=== PATIENT | male | born 1960 | race Caucasian/White ===

== ENCOUNTER 2019-05-21 04:33 | Inpatient (IN) | payer OTHER, SELFPAY ==
[2019-05-21] VITALS (9 sets, daily range): BP systolic 130–175; BP diastolic 68–94; PULSE 78–97; RESP 16–21; TEMP 36.4–37.1; O2SAT 95–100; BMI 28.5
--- NOTE | ~2019-05-21 | CT_ITS ---
EXAMINATION: CT brain wo con DATE: 05/21/2019 05:19 INDICATION: Left facial and arm numbness TECHNIQUE: Computed tomography (CT) of the head was performed without intravenous contrast. The mA wa s adjusted according to patient size. Iterative reconstruction technique was employed. Exam dose: 60 5.33 mGy-cm total exam DLP. COMPARISON: None FINDINGS: Bilateral vertebral, basilar and bilateral carotid siphon and supraclinoid internal carotid artery calcifications are noted. There is nonspecific diminished attenuation of the cerebral white m atter, likely due to chronic small vessel ischemic changes. Bilateral chronic basal ganglia lacunar infarcts, more prominent on the left, including caudate nucle us, as well as chronic left periventricular lacunar infarct. No recent cerebrovascular accident is no heavenly. CT is not sensitive for detection of hyperacute ischemic infarct however. No midline shift or mass effect. No subdural or epidural hematoma. There is moderate global volume lo ss. No orbital mass lesion is evident. The mastoid air cells and included paranasal sinuses are unremarkable. No fracture or bone destruction of the cranial vault. IMPRESSION: Bilateral chronic lacunar infarcts of the basal ganglia and left periventricular area Cerebral atherosclerosis and chronic small vessel ischemic changes Reviewed, dictated and finalized at [facility]. Reviewed, dictated and finalized at location A. RACTIVE DESIGNER IMPRESSION: Bilateral chronic lacunar infarcts of the basal ganglia and left p eriventricular area Cerebral atherosclerosis and chronic small vessel ischemic changes
--- NOTE | ~2019-05-21 | US_ITS ---
EXAMINATION: US carotid duplex BI DATE: 05/21/2019 11:33 INDICATION: Stroke presenting with symptoms of skin sensation at the left arm TECHNIQUE: Grayscale, color Doppler, and pulsed Doppler images of the cervical carotid arteries were obtained. The degree of vessel stenosis is placed in one of the following categories: normal, <50%, 5 0-69%, >=70% but less than near-occlusion, near-occlusion, or total occlusion. Note that percent sten osis relative to normal distal artery lumen diameter is indirectly measured from velocity measurement s as described by Lit, et al. Radiology 2003; 229:340-346. COMPARISON: None. FINDINGS: RIGHT: The right common carotid artery (CCA) peak systolic velocity (PSV) is 81 cm/s. The right internal car otid artery (ICA) PSV is 88 cm/s. The right ICA end-diastolic velocity (EDV) is 28 cm/s. The right IC A/CCA PSV ratio is 1.1. Grayscale and color Doppler images yield an estimate of <50% diameter reducti on from plaque in the ICA. The external carotid artery (ECA) PSV is 139 cm/s. There is antegrade flow in the right vertebral artery. LEFT: The left CCA PSV is 67 cm/s. The left ICA PSV is 95 cm/s. The left ICA EDV is 20 cm/s. The left ICA/C CA PSV ratio is 1.4. Grayscale and color Doppler images yield an estimate of <50% diameter reduction from plaque in the ICA. The ECA PSV is 163 cm/s. There is antegrade flow in the left vertebral artery . IMPRESSION: 1. <50% stenosis in the right internal carotid artery. 2. <50% stenosis in the left internal carotid artery. Reviewed, dictated and finalized at location A. R REEL OPERATOR
--- NOTE | ~2019-05-21 | MR_ITS ---
EXAMINATION: MR brain/brain stem wo/w con DATE: 05/21/2019 11:14 INDICATION: Cerebrovascular accident. TECHNIQUE: Magnetic resonance imaging (MRI) of the brain and brainstem was performed without and with 18 mL MultiHance intravenous contrast. Sequences included sagittal and axial T1-weighted FSE, axial diffusion-weighted FS EPI, axial T2*-weighted GRE, axial T2-weighted FLAIR Propeller, and axial T2-we ighted Propeller. Postcontrast sequences included axial and coronal T1-weighted FSE. Apparent diffusi on coefficient (ADC) maps were created. COMPARISON: Head CT 05/21/2019 FINDINGS: There is an acute infarct in the right thalamus. There are old infarcts in the left basal g anglia and left thalamus. There is a small area of cystic encephalomalacia in the right subinsular wh ite matter. There are scattered areas of nonspecific increased T2-weighted signal intensity in the ce rebral white matter, which is within normal limits for the patient's age. There is no intracranial he morrhage or abnormal mass lesion. There is ex vacuo dilatation of frontal horn of left lateral ventri anahi. The orbits are normal. The paranasal sinuses are clear. The mastoid air cells are normal. IMPRESSION: 1. Acute infarct in the right thalamus. 2. Old infarcts in the left basal ganglia, left thalamus, and right subinsular white matter. Reviewed, dictated and finalized at location A. RVISOR PIPE MANUFACTURE
--- NOTE | ~2019-05-21 | XR_ITS ---
EXAMINATION: XR chest 1V portable DATE: 05/21/2019 06:02 INDICATION: Left arm numbness TECHNIQUE: frontal view of the chest was obtained. COMPARISON: Chest radiograph dated 08/22/2016 FINDINGS: The lungs remain clear with no focal airspace opacities, pulmonary edema, pleural effusion or pneumot horax. The cardiomediastinal silhouette is normal. Visualized bones and soft tissues are unremarkable . IMPRESSION: 1. No acute cardiopulmonary disease. Reviewed, dictated and finalized at location A. ING CLINICAL DIRECTOR
[2019-05-21 04:49] LABS: Glucose Point of Care 278 (65-105)
--- NOTE | 2019-05-21 04:58 | ECG_ITS ---
Measurements Intervals [place] Rate: 93 P: 47 MT: 134 QRS: -16 QRSD: 136 T: 7 QT: 362 QTc: 452 Interpretive Statements SINUS RHYTHM RIGHT BUNDLE BRANCH BLOCK ABNORMAL ECG Electronically Signed On 05-21-2019 7:13:13 WATER PLANT PUMP OPERATOR by Torsten Barakat D.O.
[2019-05-21 05:07] LABS: Basophils Absolute Auto 0.1 K/mm3 (0.0-0.1); Basophils Percent Auto 0.7 % (0.2-1.2); Eosinophils Absolute Auto 0.2 K/mm3 (0-0.3); Eosinophils Percent Auto 2.3 % (0-4.4); Hematocrit 48.4 % (42.0-52.0); Hemoglobin 16.6 g/dL (14.0-18.0); Immature Granulocyte Absolute 0.05 K/mm3 (0.00-0.031); Immature Granulocyte Percent A 0.5 % (0-0.5); Lymphocytes Absolute Auto 3.05 K/mm3 (0.9-3.2); Lymphocytes Percent Auto 29.9 % (18.3-44.2); Mean Corpuscular HGB Conc 34.3 g/dl (32-36); Mean Corpuscular Hemoglobin 28.3 pg (26-34); Mean Corpuscular Volume 82.5 fl (80-100); Mean Platelet Volume 11.7 fl (7.4-10.4); Monocytes Percent Auto 9.5 % (2.6-8.5); Neutrophils Absolute Auto 5.8 K/mm3 (1.3-6.7); Neutrophils Percent Auto 57.1 % (45.5-73.1); Platelet Count Result 216 k/mm3 (150-375); Red Blood Count 5.87 M/mm3 (4.6-6.20); Red Cell Distribution Width 12.8 % (11.5-14.5); White Blood Count 10.2 K/mm3 (4.5-10.0)
--- NOTE | 2019-05-21 05:13 | ED.NEUROSD ---
HPI - Neuro Symptoms/Deficit General Chief Complaint: Neuro Symptoms/Deficit <Annel Kendall MD - Last Filed: 05/22/19 07:15> Stated Complaint: L arm numb/ L side of face numb <Annel Kendall MD - Last Filed: 05/22/19 07:15> Time Seen by Provider: 05/21/19 04:46 <Annel Kendall MD - Last Filed: 05/22/19 07:15> Source: patient <Annel Kendall MD - Last Filed: 05/22/19 07:15> Mode of arrival: ambulatory <Annel Kendall MD - Last Filed: 05/22/19 07:15> Limitations: no limitations <Annel Kendall MD - Last Filed: 05/22/19 07:15> History of Present Illness HPI Narrative: 58 yo male with h/o DM, HTN who presents for evaluation of left facial and left arm numbness starting at 11 pm . Patient states he noticed at 11 pm numbness to left face and left arm. He states he went to sleep and he noticed that his numbness was still present. He reports intermittent dizziness and posterior headache starting at 1 am. He is unsure of focal weakness. He denies chest pain or sob. he was told that he had mild stroke last year but he denies having any residual deficits. <Annel Kendall MD - Last Filed: 05/22/19 07:15> Onset (ago): hour(s) (6 hours) <Annel Kendall MD - Last Filed: 05/22/19 07:15> Location: left face and left arm <Annel Kendall MD - Last Filed: 05/22/19 07:15> Related Data Home Medications: Home Medications Medication Instructions Recorded Confirmed aspirin 81 mg PO HS 05/21/19 05/21/19 atorvastatin 40 mg PO HS 05/21/19 05/21/19 carvedilol 25 mg PO DAILY 05/21/19 05/21/19 lisinopril 40 mg PO DAILY 05/21/19 05/21/19 omeprazole magnesium [Prilosec OTC] 20 mg PO BID 05/21/19 05/21/19 <Annel Kendall MD - Last Filed: 05/22/19 07:15> Allergies/Adverse Reactions: Allergies Allergy/AdvReac Type Severity Reaction Status Date / Time codeine Allergy Mild Vomiting Verified 05/21/19 04:47 Penicillins Allergy Mild Hives Verified 05/21/19 04:47 Sulfa (Sulfonamide Allergy Mild Nausea Verified 05/21/19 04:47 Antibiotics) <Annel Kendall MD - Last Filed: 05/22/19 07:15> Review of Systems Review of Systems: All systems reviewed & are unremarkable except as noted in HPI and below <Annel Kendall MD - Last Filed: 05/22/19 07:15> Constitutional: Constitutional: Denies chills and Denies fever(s) <Annel Kendall MD - Last Filed: 05/22/19 07:15> Eyes: Eyes: Denies change in vision and Denies photophobia <Annel Kendall MD - Last Filed: 05/22/19 07:15> ENT: Reports dizziness (intermittent) <Annel Kendall MD - Last Filed: 05/22/19 07:15> Cardiovascular: Cardiovascular: Denies chest pain and Denies radiating jaw, neck or arm pain <Annel Kendall MD - Last Filed: 05/22/19 07:15> Respiratory: Respiratory: Denies cough and Denies dyspnea <Annel Kendall MD - Last Filed: 05/22/19 07:15> Gastrointestinal: Gastrointestinal: Denies abdominal pain, Denies nausea and Denies vomiting <Annel Kendall MD - Last Filed: 05/22/19 07:15> Neurologic: Reports headache(s), Reports numbness and Reports weakness <Annel Kendall MD - Last Filed: 05/22/19 07:15> [facility] Past Medical History Medical History: Medical History (Updated 05/22/19 @ 02:09 by Ruby Kasper PA-C) Benign prostatic hyperplasia COPD (chronic obstructive pulmonary disease) CVA (cerebral vascular accident) Brain CT 05/21/2019 showed an old infarct in left basal ganglia, left thalamus, and right subinsular white matter. GERD (gastroesophageal reflux disease) History of colon polyps Hyperlipidemia Hypertension Kidney stones Mild coronary artery disease Noted on cardiac catheterization January 2015. 30% stenosis noted in the proximal right and proximal circumflex as well and mild plaquing elsewhere. Obstructive sleep apnea Tobacco dependence Type 2 diabetes mellitus Hemoglobin A1c was 10.4 % in January 2015. <Annel Harris
[2019-05-21 05:49] LABS: Blood Urea Nitrogen 15 mg/dL (9-20); Carbon Dioxide 25 mmol/L (22-30); Chloride 94 mmol/L (98-107); Estimated Glomerular Filt Rate > 60; Glucose 295 mg/dL (75-110); Potassium 4.4 mmol/L (3.4-5.0); Sodium 135 mmol/L (137-145)
[2019-05-21 06:02] LABS: Troponin I < 0.012 ng/mL (0.000-0.034)
[2019-05-21 06:06] LABS: INR 0.9; Prothrombin Time 11.9 Seconds (11.1-14.7)
[2019-05-21 06:07] LABS: Partial Thromboplastin Time 24.2 SECONDS (22.3-36.8)
[2019-05-21] MEDS: ASPIRIN 81 MG CHEWABLE TABLET 324 MG PO (06:11)
--- NOTE | 2019-05-21 09:04 | PC.NURSE ---
This patient, Bull Wild, was admitted to 3 Med Surg Room 332-01. Patient/family oriented to hospital policies and general routines including ID bracelet, bed and alarms, visiting hours, pain management, procedures, bathroom and other care routines, personal items, smoking policy, room service/diet, and visiting hours. Valuables list has been completed. Information on how to activate the Rapid Response Team has been discussed. Patient/Family are encouraged to report perceived risks to care and to ask questions if they do not understand what they are told or what they should do.
[2019-05-21 09:23] LABS: Troponin I < 0.012 ng/mL (0.000-0.034)
--- NOTE | 2019-05-21 10:45 | PC.NURSE ---
patient to mri per w/c at 1040
[2019-05-21] MEDS: ALPRAZOLAM 0.5 MG TABLET PO (10:56)
--- NOTE | 2019-05-21 11:37 | PC.NURSE ---
patient back to floor after tests
[2019-05-21 12:14] LABS: Troponin I < 0.012 ng/mL (0.000-0.034)
--- NOTE | 2019-05-21 12:44 | CONS_ITS ---
DATE OF CONSULTATION: HISTORY: This 58 years old has been admitted to [facility] through the emergency room for the complaint of left facial and left upper extremity numbness, along with the history of intermittent dizziness and posterior headache in addition to the history of diabetes mellitus and hypertension. ALLERGIES: AT THE TIME OF AN ADMISSION TO THE ER, HE WAS REPORTEDLY ALLERGIC TO CODEINE, PENICILLIN, AND SULFA. PAST HISTORY: Has history of COPD as well and in the past has undergone lithotripsy. PHYSICAL EXAMINATION: GENERAL: Revealed him to be awake, alert, cooperative, in no obvious acute distress. HEENT: Head normocephalic with no cranial bruit. Ear, nose, throat examination normal. NECK: Supple with no cervical bruit. No thyromegaly. No lymphadenopathy. HEART: Regular with no murmur. LUNGS: Clear to auscultation. ABDOMEN: Soft. NEUROLOGIC: Awake, alert, oriented x3. Speech not dysphasic, not dysarthric, not dysphonic. Pupils round and regular. Enriquez of vision full. Extraocular movements full. Face symmetrical. Tongue midline. Motor examination revealed symmetrical strength and tone. Reflexes symmetrical. Plantars downgoing. As the patient was out of the tPA window in the emergency room, he was admitted for further evaluation. Basic metabolic panel normal so as the CBC. The initial CT scan was done and at this stage, the patient has been sent down for the MRI and further recommendations will be made accordingly. DAWOOD KIM M.D. HAND PATCHER HAND PATCHER D I MT: Suresh
--- NOTE | 2019-05-21 22:30 | PM.IMHP ---
H&P: HPI History of Present Illness Chief complaint: Left face and arm numbness. Narrative: Bull Wild is a 58 year old male smoker with diabetes, mild coronary artery disease on cardiac catheterization in 2014, COPD, hypertension, sleep apnea, and several other comorbidities who presented to the emergency department earlier this morning for evaluation of left face and arm numbness. At approximately 23:00 last night, he noticed a sudden onset of numbness on the left side of his face in the left upper extremity. He then lay down to go to bed, at approximately 01:00 he developed a posterior headache and mild dizziness. He has not noticed any significant weakness. No diplopia, dysarthria, facial asymmetry, or dysphagia. He has known history of atrial fibrillation and denies palpitations. He presented to the emergency department approximately 5 hours after onset of symptoms, and at that time report that he had a ?mild stroke? last year. In fact, brain CT today showed old infarcts in the left basal ganglia, left thalamus, and right subinsular white matter. No acute findings were noted on that today, but a subsequent MRI showed an acute infarct in the right thalamus. Review of Systems Review of Systems: Narrative: Twelve systems were reviewed with pertinent positives and negatives as per HPI. No fever, chills, or sweats. Denies recent cold or flu symptoms. No chest pain, pleuritic pain, or shortness of breath. No nausea, vomiting, or diarrhea. Except as documented, all other systems were reviewed and are negative. [facility] Past Medical History Medical History (Updated 05/22/19 @ 02:09 by Ruby Kasper PA-C) Benign prostatic hyperplasia COPD (chronic obstructive pulmonary disease) CVA (cerebral vascular accident) Brain CT 05/21/2019 showed an old infarct in left basal ganglia, left thalamus, and right subinsular white matter. GERD (gastroesophageal reflux disease) History of colon polyps Hyperlipidemia Hypertension Kidney stones Mild coronary artery disease Noted on cardiac catheterization January 2015. 30% stenosis noted in the proximal right and proximal circumflex as well and mild plaquing elsewhere. Obstructive sleep apnea Tobacco dependence Type 2 diabetes mellitus Hemoglobin A1c was 10.4 % in January 2015. Surgical History Surgical History (Updated 05/22/19 @ 02:06 by Ruby Kasper PA-C) Status post cystoscopy with ureteral stent placement Status post laser lithotripsy of ureteral calculus Family History Family History Mother Acute myocardial infarction Sibling Acute myocardial infarction Social History Social History (Updated 05/22/19 @ 02:07 by Ruby Kasper PA-C) Social History: The patient lives with his in [place]. He designates his as his surrogate decision maker. He has smoked up to 2 packs of cigarettes per day for > 35 years, now smokes between 0.5 and 1 pack per day. He uses alcohol socially in moderation. No drug use. Smoking packs per day: 1 Smoking cigarettes per day: 20.0 Years smoked: 40 Smoking pack-years: 40.00 Smoking status: Current every day smoker Tobacco type: cigarettes Alcohol intake: current Drinks per week: 1 Substance use: never Spiritual care concerns: No Agree to blood products: Yes Meds Home Medications and Allergies Home Medications Medication Instructions Recorded Confirmed Type aspirin 81 mg PO HS 05/21/19 05/21/19 History atorvastatin 40 mg PO HS 05/21/19 05/21/19 History carvedilol 25 mg PO DAILY 05/21/19 05/21/19 History lisinopril 40 mg PO DAILY 05/21/19 05/21/19 History omeprazole magnesium [Prilosec OTC] 20 mg PO BID 05/21/19 05/21/19 History Allergies Allergy/AdvReac Type Severity Reaction Status Date / Time codeine Allergy Mild Vomiting Verified 05/21/19 04:47 Penicillins Allergy Mild Hives Verified 05/21/19 04:47 Sulfa (Sulfonamide All
[2019-05-21] MEDS: ASPIRIN 81 MG CHEWABLE TABLET PO (22:41)
[2019-05-21] MEDS: ATORVASTATIN 40 MG TABLET PO (22:42)
[2019-05-21] MEDS: PANTOPRAZOLE 40 MG TABLET PO (22:43)
[2019-05-22] VITALS (8 sets, daily range): BP systolic 103–176; BP diastolic 43–72; PULSE 68–101; RESP 16–20; TEMP 36.3–37.1; O2SAT 93–98
[2019-05-22 06:36] LABS: Basophils Absolute Auto 0.1 K/mm3 (0.0-0.1); Basophils Percent Auto 0.5 % (0.2-1.2); Eosinophils Absolute Auto 0.2 K/mm3 (0-0.3); Eosinophils Percent Auto 2.4 % (0-4.4); Hematocrit 48.1 % (42.0-52.0); Hemoglobin 16.2 g/dL (14.0-18.0); Immature Granulocyte Absolute 0.06 K/mm3 (0.00-0.031); Immature Granulocyte Percent A 0.7 % (0-0.5); Lymphocytes Absolute Auto 2.84 K/mm3 (0.9-3.2); Lymphocytes Percent Auto 31.2 % (18.3-44.2); Mean Corpuscular HGB Conc 33.7 g/dl (32-36); Mean Corpuscular Hemoglobin 27.9 pg (26-34); Mean Corpuscular Volume 82.9 fl (80-100); Mean Platelet Volume 11.6 fl (7.4-10.4); Monocytes Absolute Auto 0.8 K/mm3 (0.1-0.6); Monocytes Percent Auto 9.1 % (2.6-8.5); Neutrophils Absolute Auto 5.1 K/mm3 (1.3-6.7); Neutrophils Percent Auto 56.1 % (45.5-73.1); Platelet Count Result 194 k/mm3 (150-375); Red Cell Distribution Width 12.8 % (11.5-14.5); White Blood Count 9.1 K/mm3 (4.5-10.0)
[2019-05-22 06:44] LABS: Hemoglobin A1C 9.5 % (<5.7)
[2019-05-22 06:48] LABS: Blood Urea Nitrogen 17 mg/dL (9-20); Calcium 9.7 mg/dL (8.4-10.2); Carbon Dioxide 24 mmol/L (22-30); Chloride 94 mmol/L (98-107); Estimated CRCL calculation 109 ml/min; Estimated Glomerular Filt Rate > 60; Glucose 264 mg/dL (75-110); Potassium 4.6 mmol/L (3.4-5.0); Sodium 134 mmol/L (137-145)
[2019-05-22 06:49] LABS: Alanine Aminotransferase 21 U/L (4-50); Albumin Level 4.4 g/dL (3.5-5.1); Alkaline Phosphatase 96 U/L (38-126); Aspartate Amino Transferase 19 U/L (17-59); Bilirubin,Total 0.7 mg/dL (0.2-1.3); Cholesterol 258 mg/dL (0-200); HDL Direct 36 mg/dL; Triglycerides 231 mg/dL (<150)
[2019-05-22 07:01] LABS: LDL Cholesterol Direct 190 mg/dL
[2019-05-22] MEDS: PANTOPRAZOLE 40 MG TABLET PO ×2 (09:48→20:31)
[2019-05-22] MEDS: CLOPIDOGREL BISULFATE 75 MG TABLET PO (09:48)
[2019-05-22] MEDS: lisinopriL 20 MG TABLET 40 MG PO (09:49)
[2019-05-22 11:30] LABS: Glucose Point of Care 263 (65-105)
--- NOTE | 2019-05-22 11:39 | WPDNEUROPN ---
Progress Note: A&P Assessment and Plan (1) Hyperlipidemia: Code(s): E78.5 - Hyperlipidemia, unspecified Status: Acute (2) Hypertension: Code(s): I10 - Essential (primary) hypertension Status: Acute (3) Type 2 diabetes mellitus: Code(s): E11.9 - Type 2 diabetes mellitus without complications Status: Acute (4) Acute CVA (cerebrovascular accident): Code(s): I63.9 - Cerebral infarction, unspecified Status: Acute (5) Acute left hemiparesis: Code(s): G81.94 - Hemiplegia, unspecified affecting left nondominant side Status: Acute Additional Plan lower the cholestrol Review of Systems Review of Systems: All systems reviewed & are unremarkable except as noted in HPI and below Exam Const: General: no acute distress Eyes: General: appearance normal, both eyes and all related structures Alignment and Position: alignment normal Eyelids: eyelids normal Conjunctivae: conjunctivae normal Pupils: Equal, round and reactive pupils present EOM: EOMs intact bilaterally Direct Ophthalmoscopy: normal light reflex Neck: Neck: full ROM and no lymphadenopathy Resp: Auscultation: clear to auscultation bilaterally Cardio: Rate: regular rate Rhythm: regular rhythm Skin: General skin exam: no rashes or lesions noted Neuro: Cranial nerves: Yes CN's II-XII intact bilaterally Cognition (Neuro): normal cognition Deep tendon reflexes (DTR's): Right triceps reflex intensity grade: 1+, Left triceps reflex intensity grade: 1+, Rt Biceps (C5, C6): 1+, Left biceps reflex intensity grade: 1+, Right brachioradialis reflex intensity grade: 1+, Left brachioradialis reflex intensity grade: 1+, Right patellar reflex intensity grade: 1+, Left patellar reflex intensity grade: 1+, Right ankle reflex intensity grade: 1+ and Left ankle reflex intensity grade: 1+ Objective Data Vital Signs Vital Signs: Vital Signs - 24 hr 05/21/19 14:00 05/21/19 16:00 05/21/19 22:00 Temperature 36.6 C 37.1 C Pulse Rate 82 80 83 Respiratory Rate 20 20 Blood Pressure 151/82 H 136/68 Pulse Oximetry 98 95 05/22/19 00:00 05/22/19 04:00 05/22/19 06:00 Temperature 36.3 C L Pulse Rate 78 78 78 Respiratory Rate 20 Blood Pressure 176/72 H Pulse Oximetry 98 05/22/19 08:00 Temperature Pulse Rate 80 Respiratory Rate Blood Pressure Pulse Oximetry Intake/Output Intake/Output: Intake & Output 05/19/19 05/20/19 05/21/19 05/22/19 23:59 23:59 23:59 23:59 Intake Total 1320 360 Balance 1320 360 Meds/Results Medications: Active Medications Generic Name Dose Route Start Last Admin Trade Name Freq PRN Reason Stop Dose Admin Aspirin 81 mg 05/21/19 21:00 05/21/19 22:41 Aspirin Chewable PO 81 mg HS FATOUMATA Administration Atorvastatin Calcium 40 mg 05/21/19 21:00 05/21/19 22:42 Lipitor PO 40 mg HS FATOUMATA Administration Carvedilol 25 mg 05/22/19 09:00 Coreg PO DAILY FATOUMATA Clopidogrel Bisulfate 75 mg 05/22/19 09:00 05/22/19 09:48 Plavix PO 75 mg QAM FATOUMATA Administration Dextrose 12.5 gm 05/21/19 19:31 Dextrose 50% Syringe IV PUSH PRN PRN Hypoglycemia Protocol Glucagon 1 mg 05/21/19 19:31 Glucagon For Inj IM PRN PRN Hypoglycemia Protocol Glucose 15 gm 05/21/19 19:31 Glutose 15 PO PRN PRN Hypoglycemia Protocol Dextrose 1,000 mls @ 100 mls/hr 05/21/19 19:31 Dextrose 5% 1,000 Ml IVPB PRN PRN Hypoglycemia Protocol Insulin Aspart 3 - 6 units 05/22/19 08:00 05/22/19 09:51 Novolog SUB-Q Not Given TIDWM FATOUMATA Protocol Lisinopril 40 mg 05/22/19 09:00 05/22/19 09:49 Prinivil PO 40 mg DAILY FATOUMATA Administration Pantoprazole Sodium 40 mg 05/21/19 21:00 05/22/19 09:48 Protonix PO 40 mg Q12HR FATOUMATA Administration Radiology Results: ITS Impressions Head CT 05/21/19 06:00 IMPRESSION: Bilateral chronic lacunar infarcts of
[2019-05-22] MEDS: INSULIN ASPART (*BKC) 100 UNITS/ML SUB-Q ×2 (11:45→17:31)
[2019-05-22] MEDS: carvediloL 25 MG TABLET PO (11:46)
--- NOTE | 2019-05-22 13:27 | PM.IMPN ---
Progress Note: A&P Assessment and Plan (1) Acute CVA (cerebrovascular accident): Code(s): I63.9 - Cerebral infarction, unspecified Status: Acute Assessment and Plan: Acute infarcts noted in the right thalamus on brain MRI. Several old infarcts were noted as well. Carotid Doppler ultrasounds showed < 50% stenosis in the bilateral internal carotid arteries. Echocardiogram is pending. Dr. Matthews notified of left lower leg deficit has still okayed patient for discharge from his standpoint; stated his management likely wouldn't change and has already having imaging done. Continue aspirin and Plavix. Continue atorvastatin. notes that he has been non-compliant with this medication. Lipid panel grossly abnormal with elevated triglycerides, cholesterol and LDL PT/OT evaluated patient is having difficulty ambulating due to decreased sensation in LLE Will observe another night. To work with PT/OT. Considering placment (2) Type 2 diabetes mellitus: Code(s): E11.9 - Type 2 diabetes mellitus without complications Status: Acute Assessment and Plan: Patient takes 40 units lantus every night. A1c 9.5 Will continue sliding scale insulin, Accu-Cheks, and hypoglycemic protocol. It is important that he get his diabetes under control. Resume home lantus (3) Hypertension: Code(s): I10 - Essential (primary) hypertension Status: Acute Assessment and Plan: Blood pressure was as high as 170s sys this morning. 120s sys this afternoon per nursing Continue antihypertensives and monitor daily. (4) Hyperlipidemia: Code(s): E78.5 - Hyperlipidemia, unspecified Status: Acute Assessment and Plan: Lipid panel shows he is not at goal and states he stopped taking medication but did not give a reason. Continue statin. (5) Tobacco dependence: Code(s): F17.200 - Nicotine dependence, unspecified, uncomplicated Status: Acute Assessment and Plan: Smoking cessation is imperative and was discussed again. Nursing and RT to also reinforce cessation Subjective Date/time seen: 05/22/19 13:27 Interval history: Patient is a 58 yo M with history of diabetes, mild coronary artery disease on cardiac catheterization in 2014, COPD, hypertension, sleep apnea, and several other comorbidities who is here fro acute CVA found on MRI imaging after having numbness of left face and arm. Patient is doing okay today and is wishing to return home. He is now reporting left leg numbness with mild weakness that started 10 minutes prior to my visit; this was reported to Dr. Matthews by myself after. Otherwise his numbness in face and arm are stable and he has no other complaints. Denies f/c/ns, headaches, dizziness, lightheadedness, changes in v/h, cp/palpitations, sob/cough, n/v/d/c, abd pain, dysphagia, melena, brbpr, dysuria, hematuria, cloudy urine, calf pain/swelling, s/sx of stroke Review of Systems Review of Systems: All systems reviewed & are unremarkable except as noted in HPI and below Exam Narrative: Exam Narrative: Patient sitting up on side of bed at time of visit. is in room visiting Const: General: comfortable, no acute distress, well developed and alert Orientation/consciousness: patient oriented x3 HENMT: Head: normocephalic and atraumatic Ears: external ears normal General nose exam: Normal nares present Face and sinus: face symmetric Mouth: Yes tongue normal and Yes moist mucous membranes Teeth and gingiva: edentulous Throat: posterior oropharynx normal and uvula midline Eyes: General: appearance normal, both eyes and all related structures Sclera: sclerae normal Pupils: Equal, round and reactive pupils present EOM: EOMs intact bilaterally Neck: Neck: trachea mid
--- NOTE | 2019-05-22 14:21 | ECG_ITS ---
Measurements Intervals [place] Rate: 69 P: 22 NE: 150 QRS: -7 QRSD: 101 T: 74 QT: 391 QTc: 421 Interpretive Statements SINUS RHYTHM INCOMPLETE RIGHT BUNDLE BRANCH BLOCK BORDERLINE ST-T WAVE ABNORMALITY- INF/LAT LEADS BORDERLINE ECG Electronically Signed On 05-22-2019 15:43:03 CLIENT FINANCE ANALYST by Torsten Barakat D.O.
[2019-05-22] MEDS: ENOXAPARIN 40 MG/0.4 ML SYRINGE SUB-Q (16:40)
[2019-05-22 18:24] LABS: Glucose Point of Care 332 (65-105)
--- NOTE | 2019-05-22 19:26 | ECHO_ITS ---
Patient Info Name: Bull Wild Age: 58 years : 1960 Gender: Male Ht: 72 in Wt: 210 lbs BSA: 2.22 m2 HR: 78 bpm BP: 176 / 72 mmHg Heart Rhythm: Sinus Rhythm Technical Quality: Good Exam Date: 05/22/2019 9:08 AM Exam Location: [facility] Exam Room: 332 Patient Status: Inpatient Admit Date: 05/21/2019 Staff Ordering Physician: Ruby Kasper PA-C Ceramic Designer: Elizabeth Ramachandran RDCS Attending Provider: Rick Bravo PA-C Exam Type: CA echo doppler color flow Study Info Indications - cva htn Complete two-dimensional, color flow and Doppler transthoracic echocardiogram is performed. Summary 1. Left ventricular systolic function is normal, estimated at 60-65%. 2. There is no increased left ventricular wall thickness. 3. The left ventricular diastolic function is grade I diastolic dysfunction. 4. There is mild to moderate aortic valve stenosis with a peak velocity of 264 cm/s, mean gradient of 13 mmHg, and aortic valve area of 1.5 cm2. 5. There is moderate aortic valve calcification. 6. There is trace mitral valve regurgitation. 7. The mitral valve annulus is moderately calcified. Recommendations * Consider transesophageal echocardiogram if clinically indicated. Left Ventricle Left ventricular chamber dimension is normal. Left ventricular systolic function is normal, estimated at 60-65%. There is no increased left ventricular wall thickness. The left ventricular diastolic function is grade I diastolic dysfunction. Right Ventricle Right ventricular chamber dimension is normal. Right ventricular systolic function is normal. Prominent moderator band in RV. Left Atria Left atrial chamber dimension is normal. Right Atria Right atrial chamber dimension is normal. Aortic Valve The aortic valve is not well visualized. There is mild to moderate aortic valve stenosis with a peak velocity of 264 cm/s, mean gradient of 13 mmHg, and aortic valve area of 1.5 cm2. There is no aortic valve regurgitation. There is moderate aortic valve calcification. Pulmonic Valve The pulmonic valve is not well visualized. Mitral Valve The mitral valve has normal leaflets. There is trace mitral valve regurgitation. The mitral valve annulus is moderately calcified. Tricuspid Valve The tricuspid valve leaflets are normal. There is mild tricuspid valve regurgitation. Pericardium/Pleural The pericardium appears normal. There is no pericardial effusion. Inferior Vena Cava Normal inferior vena cava with >50% collapse upon inspiration consistent with normal right atrial pressure, 5 mmHg. Aorta The aortic root size at the sinus of Valsalva is normal. Left Ventricular Outflow Tract Name Value Normal LVOT 2D LVOT Diameter 2.0 cm LVOT Doppler LVOT Peak Gradient 5 mmHg LVOT Mean Gradient 3 mmHg LVOT VTI 20 cm LVOT VTI/AV VTI Ratio 0.5 LVOT Stroke Volume 61 ml LVOT CO 13.2 l/min LVOT CI
[2019-05-22] MEDS: ATORVASTATIN 40 MG TABLET PO (20:31)
[2019-05-22] MEDS: ASPIRIN 81 MG CHEWABLE TABLET PO (20:32)
[2019-05-22] MEDS: INSULIN GLARGINE (*BKC) 100 UNITS/ML 40 UNITS SUB-Q (20:36)
[2019-05-22 21:09] LABS: Glucose Point of Care 280 (65-105)
[2019-05-23 06:00] VITALS: BP 139/75; PULSE 78; RESP 20; TEMP 36.8; O2SAT 97
[2019-05-23 06:18] LABS: Blood Urea Nitrogen 24 mg/dL (9-20); Calcium 9.5 mg/dL (8.4-10.2); Carbon Dioxide 25 mmol/L (22-30); Chloride 94 mmol/L (98-107); Estimated CRCL calculation 96 ml/min; Estimated Glomerular Filt Rate > 60; Glucose 210 mg/dL (75-110); Magnesium 1.7 mg/dL (1.6-2.3); Potassium 4.4 mmol/L (3.4-5.0); Sodium 132 mmol/L (137-145)
[2019-05-23 07:51] LABS: Glucose Point of Care 190 (65-105)
[2019-05-23 09:42] VITALS: PULSE 78
[2019-05-23] MEDS: PANTOPRAZOLE 40 MG TABLET PO (09:42)
[2019-05-23] MEDS: CLOPIDOGREL BISULFATE 75 MG TABLET PO (09:42)
[2019-05-23] MEDS: carvediloL 25 MG TABLET PO (09:42)
[2019-05-23] MEDS: lisinopriL 20 MG TABLET 40 MG PO (09:42)
[2019-05-23] MEDS: ENOXAPARIN 40 MG/0.4 ML SYRINGE SUB-Q (09:43)
[2019-05-23 11:16] LABS: Glucose Point of Care 231 (65-105)
[2019-05-23] MEDS: INSULIN ASPART (*BKC) 100 UNITS/ML SUB-Q (12:18)
--- NOTE | 2019-05-23 13:27 | PM.DS ---
DS: Diagnosis Admitting Diagnosis Admitting Diagnosis: Cerebral infarction, unspecified Discharge Diagnosis (1) Acute CVA (cerebrovascular accident): Code(s): I63.9 - Cerebral infarction, unspecified Status: Acute Assessment and Plan: Acute infarcts noted in the right thalamus on brain MRI. Several old infarcts were noted as well. Carotid Doppler ultrasounds showed < 50% stenosis in the bilateral internal carotid arteries. Echocardiogram notable findings are mod aortic calcification, mild-mod aortic stenosis, and grade I diastolic dysfunction; discussed with patient and . Dr. Matthews notified of left lower leg deficit has still okayed patient for discharge from his standpoint; stated his management likely wouldn't change and has already having imaging done. Dr. Edwards saw patient today, and confirmed. Patient improving with PT/OT. Patient to be discharged home with home health PT/OT with walker. Continue aspirin and Plavix at discharge per Neurology recommendations Continue atorvastatin. notes that he has been non-compliant with this medication. Lipid panel grossly abnormal with elevated triglycerides, cholesterol and LDL PT/OT evaluated patient; attempted to discharge to [facility]/rehab, but was not able to be placed. Will discharge home with PT/OT (2) Type 2 diabetes mellitus: Code(s): E11.9 - Type 2 diabetes mellitus without complications Status: Acute Assessment and Plan: Patient takes 40 units lantus every night. A1c 9.5 sliding scale insulin, Accu-Cheks, and hypoglycemic protocol during stay It is important that he get his diabetes under control. Discussed this with and patient; they will be following up with PCP Continue home lantus (3) Hypertension: Code(s): I10 - Essential (primary) hypertension Status: Acute Assessment and Plan: BP improved to 130s sys this morning Continue antihypertensives Follow up with Cardiology (4) Hyperlipidemia: Code(s): E78.5 - Hyperlipidemia, unspecified Status: Acute Assessment and Plan: Lipid panel shows he is not at goal and states he stopped taking medication but did not give a reason. Continue statin. (5) Tobacco dependence: Code(s): F17.200 - Nicotine dependence, unspecified, uncomplicated Status: Acute Assessment and Plan: Smoking cessation is imperative and was discussed again prior to discharge (6) Aortic stenosis: Code(s): I35.0 - Nonrheumatic aortic (valve) stenosis Status: Acute Assessment and Plan: Found on Echo this visit Instructed patient to follow up with his office director after discharge regarding this DS: Summary Hospital Course Reason for hospitalization: Acute CVA Hospital Course: Patient is a 58 yo M, current smoker, with history of diabetes, mild coronary artery disease on cardiac catheterization in 2014, COPD, hypertension, sleep apnea, and several other comorbidities who presented to the emergency department earlier on 05/21 for evaluation of left face and arm numbness. Patient noticed sudden onset of numbness of left side of face and LUE at around 23:00 on 05/20; he then noticed posterior headache and dizziness at roughly 01:00 am 05/21 when he laid down to go to bed. CT of head in ER showed old infarcts in left basal ganglia, left thalamus, and right subinsular white matter. Of note, he presented roughly 5 hours after onset of symptoms. Please see H&P for further details. Presenting VS: BP 167/94, HR 97, RR 21, temp 97.6, sat 97% RA Presenting Pertinent labs: Na 135, Cl 94, troponins negative x3. Triglycerides 231, Cholesterol 258, LDL 190, HDL 36. BMP coags, CBC otherwise unremarkable Micro: none Imagin
--- NOTE | 2019-05-23 13:44 | WPDNEUROPN ---
Progress Note: A&P Assessment and Plan (1) Aortic stenosis: Code(s): I35.0 - Nonrheumatic aortic (valve) stenosis Status: Acute (2) Hyperlipidemia: Code(s): E78.5 - Hyperlipidemia, unspecified Status: Acute (3) Hypertension: Code(s): I10 - Essential (primary) hypertension Status: Acute (4) Type 2 diabetes mellitus: Code(s): E11.9 - Type 2 diabetes mellitus without complications Status: Acute (5) Acute CVA (cerebrovascular accident): Code(s): I63.9 - Cerebral infarction, unspecified Status: Acute (6) CVA (cerebral vascular accident): Code(s): I63.9 - Cerebral infarction, unspecified Status: Acute (7) Acute left hemiparesis: Code(s): G81.94 - Hemiplegia, unspecified affecting left nondominant side Status: Acute Assessment and Plan: discussed with the patient and his prior to the discharge the risk factors which include diabetes high blood pressure and smoking and in fact he except the fact that he has been relatively noncompliant taking care of his diabetes and blood pressure patient is doing fairly well and he will go on home health the recommendation to continue PT and OT his neurological status has improved but he definitely has risk factors for which he has to take care of him at his and he can be discharged on the present medications and I will be happy to follow him up as an outpatient Review of Systems Constitutional: Constitutional: Reports no additional constitutional complaints Eyes: Eyes: Reports no additional eye complaints ENT: Reports system reviewed and no additional complaints, except as documented Cardiovascular: Cardiovascular: Reports no additional cardiovascular complaints Respiratory: Respiratory: Reports no additional respiratory complaints Gastrointestinal: Gastrointestinal: Reports no additional gastrointestinal complaints Genitourinary: Genitourinary: Reports no additional male genitourinary complaints Musculoskeletal: Musculoskeletal: Reports no additional musculoskeletal complaints Integumentary/Breasts: Skin/Breast: Reports system reviewed and no additional complaints, except as docu Neurologic: Reports system reviewed and no additional complaints, except as documented Exam Const: General: comfortable and no acute distress HENMT: General nose exam: Normal nares present Mouth: Yes moist mucous membranes Eyes: General: appearance normal, both eyes and all related structures Neck: Neck: supple and no JVD Resp: Effort & Inspection: normal respiratory effort Auscultation: clear to auscultation bilaterally Cardio: Rate: regular rate Rhythm: regular rhythm Other: does have soft aortic stenosis murmur GI: Auscultation: normal bowel sounds Skin: General skin exam: normal color and no rashes or lesions noted Neuro: Other: the patient is speech and language functions are normal the cranial examination is normal he does of on a scale of mild moderate and severe mild sensory more so than the motor deficit on the left side he is able to walk fairly well with the walker and will need therapy at home he also has evidence of peripheral neuropathy which is not aware of it depressed Charlene and negative Babinski sign Objective Data Vital Signs Vital Signs: Vital Signs - 24 hr 05/22/19 14:00 05/22/19 21:37 05/23/19 06:00 Temperature 37.1 C 36.6 C 36.8 C Pulse Rate 101 H 68 78 Respiratory Rate 18 16 20 Blood Pressure 120/52 L 103/43 L 139/75 Pulse Oximetry 98 93 97 05/23/19 09:42 Temperature Pulse Rate 78 Respiratory Rate Blood Pressure Pulse Oximetry Intake/Output Intake/Output: Intake & Output 05/20/19 05/21/19 05/22/19 05/23/19 23:59 23:59 23:59 23:59 Intake Total 1320 1860 660 Output Total 500 Balance 1320 1860 160 Meds/Results Medications: Active Medications Generic Name Dose Route Start Last Admin Trade Name Freq PRN Reason Stop Dose Admin Aspi
[2019-05-23 14:00] VITALS: BP 117/91; PULSE 72; RESP 19; TEMP 36.3; O2SAT 96
[2019-05-23 14:48] VITALS: BP 117/91; PULSE 72; RESP 19; TEMP 36.3; O2SAT 96
== END 2019-05-23 15:35 | disposition home health service (06) | DRG 45 ==
LOC: ANHED 07:20 → ANH3MEDSUR 07:28
PROVIDERS: General Practice; Physician Assistant; Admitting Provider Internal Medicine; Emergency Provider Emergency Medicine; PCP Registered Nurse; Visit Provider Family Medicine
DX: I63.9 Cerebral infarction, unspecified (principal); R20.0 Anesthesia of skin; G81.94 Hemiplegia, unspecified affecting left nondominant side; I35.0 Nonrheumatic aortic (valve) stenosis; E78.5 Hyperlipidemia, unspecified; I10 Essential (primary) hypertension; J44.9 Chronic obstructive pulmonary disease, unspecified; K21.9 Gastro-esophageal reflux disease without esophagitis; E11.9 Type 2 diabetes mellitus without complications; I25.10 Atherosclerotic heart disease of native coronary artery without angina pectoris; G62.9 Polyneuropathy, unspecified; N40.0 Benign prostatic hyperplasia without lower urinary tract symptoms; G47.33 Obstructive sleep apnea (adult) (pediatric); F17.210 Nicotine dependence, cigarettes, uncomplicated; Z91.14 Patient's other noncompliance with medication regimen
CPT/HCPCS: 36415; 70450; 70553; 71045; 80048; 80061; 80076; 83036; 83735; 84484; 85025; 85610; 85730; 93005; 93306; 93880; 97110; 97116; 97161; 97165; 97535; 99285; A9270; A9577; G0378; G0379; J1650; J1815

== ENCOUNTER 2019-08-09 07:54 | Outpatient (CLI) | payer OTHER, SELFPAY ==
--- NOTE | 2019-08-09 | ECHO_ITS ---
Patient Info Name: Bull Wild Age: 59 years : 1960 Gender: Male Ht: 72 in Wt: 206 lbs BSA: 2.20 m2 HR: 72 bpm BP: 148 / 84 mmHg Technical Quality: Good Exam Date: 08/09/2019 8:23 AM Exam Location: [facility] [place] Patient Status: Outpatient Admit Date: 08/09/2019 Staff Ordering Physician: Batool, Edwardo Mckeon MD Education Reviewer: Andrew Roth, KATINA, RT Attending Provider: Batool, Edwardo Mckeon MD Referring Physician: Batool ROSARIO; Exam Type: CA echo doppler color flow Study Info Indications I35.0 - Nonrheumatic aortic (valve) stenosis Complete two-dimensional, color flow and Doppler transthoracic echocardiogram is performed. Summary 1. Left ventricular chamber dimension is normal. 2. Left ventricular systolic function is normal, estimated at 55-60%. 3. There is mildly increased left ventricular wall thickness. 4. The left ventricular diastolic function is grade I diastolic dysfunction. 5. E/e' 12 is mildly elevated. 6. There is moderate aortic valve sclerosis. 7. There is mild to moderate aortic valve stenosis with a peak velocity of 285 cm/s, mean gradient of 16 mmHg, and aortic valve area of 1.4 cm2. 8. The mitral valve has mildly calcified annulus. 9. There is trace pulmonic regurgitation. 10. Dilated inferior vena cava with >50% collapse upon inspiration consistent with elevated right atrial pressure, 10 mmHg. Left Ventricle E/e' 12 is mildly elevated. Left ventricular chamber dimension is normal. Left ventricular systolic function is normal, estimated at 55-60%. There is mildly increased left ventricular wall thickness. The left ventricular diastolic function is grade I diastolic dysfunction. Right Ventricle Right ventricular chamber dimension is normal. Right ventricular systolic function is normal. Left Atria Left atrial chamber dimension is normal. Right Atria Right atrial chamber dimension is normal. Aortic Valve The aortic valve is trileaflet. There is moderate aortic valve sclerosis. There is mild to moderate aortic valve stenosis with a peak velocity of 285 cm/s, mean gradient of 16 mmHg, and aortic valve area of 1.4 cm2. There is no aortic valve regurgitation. Pulmonic Valve There is trace pulmonic regurgitation. Mitral Valve The mitral valve has mildly calcified annulus. There is no mitral valve stenosis. There is no mitral valve regurgitation. Tricuspid Valve There is no tricuspid valve regurgitation. Pericardium/Pleural There is no pericardial effusion. Inferior Vena Cava Dilated inferior vena cava with >50% collapse upon inspiration consistent with elevated right atrial pressure, 10 mmHg. Aorta The aortic root size at the sinus of Valsalva is normal. Left Ventricular Outflow Tract Name Value Normal LVOT 2D LVOT Diameter 2.2 cm LVOT Doppler LVOT Peak Gradient 4 mmHg LVOT Mean Gradient 2 mmHg LVOT VTI 20 cm LVOT VTI/AV VTI Ratio 0.4 LVOT Stroke Volume 77 ml LVOT CO 5.
== END 2019-08-09 07:55 | disposition home or self-care (01) ==
LOC: ANHCARD 07:59
PROVIDERS: PCP Registered Nurse; Visit Provider Specialist
DX: I35.0 Nonrheumatic aortic (valve) stenosis (principal); R93.1 Abnormal findings on diagnostic imaging of heart and coronary circulation
CPT/HCPCS: 93306